=== PATIENT | female | born 1990 | race Caucasian/White ===

== ENCOUNTER 2024-03-03 12:22 | Emergency (ER) | payer OTHER, SELFPAY ==
--- NOTE | ~2024-03-03 | US_ITS ---
EXAMINATION: US pelvic complete DATE: 03/03/2024 14:01 INDICATION: 6 days. Vaginal bleeding. Comparison:No prior studies for comparison. TECHNIQUE: Multiple transabdominal and endovaginal sonographic images of the pelvis performed. FINDINGS: The uterus measures 17.2 x 7.6 x 12.1 cm. The endometrium is thickened and heterogeneous. T he endometrial complex measures 21 mm. The right ovary measures 2.9 x 3.4 x 2.9 cm and the left ovary measures 4.9 x 2.7 x 1.6 cm. There ar e small follicles in each ovary. Normal doppler signal in both ovaries. There is no free fluid in the pelvis. There are no abnormal masses seen on either side. IMPRESSION: 1. Thickened heterogeneous endometrium measuring 2.1 cm, suspicious for retained products of concepti on. Reviewed, dictated and finalized at location A. IMPRESSION: 1. Thickened heterogeneous endometrium measuring 2.1 cm, suspicious for retaine d products of conception.
[2024-03-03 12:30] VITALS: BP 141/97; PULSE 91; RESP 16; TEMP 36.4; O2SAT 100
[2024-03-03 12:48] LABS: Basophils Percent Auto 0.3 % (0.2-1.2); Eosinophils Absolute Auto 0.2 K/mm3 (0-0.3); Eosinophils Percent Auto 1.6 % (0-4.4); Hematocrit 38.7 % (37.0-47.0); Hemoglobin 12.7 g/dL (12.0-15.0); Immature Granulocyte Absolute 0.12 K/mm3 (0.00-0.031); Immature Granulocyte Percent A 1.3 % (0-0.5); Lymphocytes Absolute Auto 2.88 K/mm3 (0.9-3.2); Lymphocytes Percent Auto 31.3 % (18.3-44.2); Mean Corpuscular HGB Conc 32.8 g/dl (32-36); Mean Corpuscular Hemoglobin 29.8 pg (26-34); Mean Corpuscular Volume 90.8 fl (80-100); Mean Platelet Volume 10.4 fl (7.4-10.4); Monocytes Absolute Auto 0.5 K/mm3 (0.1-0.6); Neutrophils Absolute Auto 5.6 K/mm3 (1.3-6.7); Neutrophils Percent Auto 60.5 % (45.5-73.1); Platelet Count Result 335 k/mm3 (150-375); Red Blood Count 4.26 M/mm3 (4.2-5.4); Red Cell Distribution Width 13.7 % (11.5-14.5); White Blood Count 9.2 K/mm3 (4.5-10.0)
[2024-03-03 12:59] LABS: Alanine Aminotransferase 19 U/L (6-35); Alkaline Phosphatase 112 U/L (38-126); Anion Gap 6 mmol/L (4-12); Aspartate Amino Transferase 21 U/L (14-36); Bilirubin,Total 0.3 mg/dL (0.2-1.3); Blood Urea Nitrogen 15 mg/dL (7-17); Calcium 9.1 mg/dL (8.4-10.2); Carbon Dioxide 21 mmol/L (22-30); Chloride 113 mmol/L (98-107); Estimated CRCL calculation 116 ml/min; Estimated Glomerular Filt Rate > 60; Glucose 92 mg/dL (65-110); INR 0.9; Partial Thromboplastin Time 26.5 Seconds (22.3-36.8); Prothrombin Time 12.6 Seconds (11.1-14.7); Sodium 140 mmol/L (137-145)
--- NOTE | 2024-03-03 13:11 | ED.PREGNANCY ---
HPI - General Chief complaint: Vaginal Bleeding Stated complaint: vag bleeding, delivered 6 days ago Time Seen by Provider: 03/03/24 12:41 History of Present Illness HPI Narrative: Patient is a 33-year-old female, approximately 6 days after a spontaneous vaginal delivery at [facility] here with vaginal bleeding. She states that she delivered around 38 weeks, had gone into labor spontaneously however is did have to receive some Pitocin after stalling labor. she ended up delivering vaginally. She had some mild tearing which she received sutures for and has been doing overall well since that delivery. 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 This prompted her to come to the emergency department for evaluation. She notes she continues to feel active vaginal bleeding. She denies any penetration since delivery and does not believe she has any activities that could have torn her sutures. She denies any current abdominal pain or cramping. Denies any shortness of breath, lightheadedness. She believes she is O negative, her previous shoulder were all negative. She does not plan to have any other children. She has received RhoGAM during her prior deliveries. She denies any post complications including excessive bleeding after delivery. Related Data Allergies Allergy/AdvReac Type Severity Reaction Status Date / Time No Known Allergies Allergy Verified 03/03/24 14:05 Review of Systems Review of Systems: All systems reviewed & are unremarkable except as noted in HPI and below Exam Narrative: GENERAL: Well-appearing, well-nourished, and in no acute distress. HEAD: Normocephalic, atraumatic. EYES: PERRLA and EOMI. ENT: Nares clear. Mucous membranes moist. NECK: Supple. CHEST: Clear to auscultation. No respiratory distress. HEART: Regular rate and rhythm. Normal peripheral pulses. ABDOMEN: Soft, nontender, nondistended. 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 she has 4 sutures in the anterior distal vaginal wall which appear to be intact with no active bleeding. She additionally has a couple posterior sutures which also appear to be intact. She has a very tender speculum exam and this limited my ability two-view the cervix however she does have shane dark blood that filled the speculum. It appears to be [id number] in volume at this time. EXTREMITIES: Normal range of motion. No edema. SKIN: Warm, dry, no rash. NEURO: No focal deficits. Alert and oriented x3. PSYCH: Normal mood and affect. Course Course Emergency Course: Chart review performed. Patient here with vaginal bleeding, recent post . Triage vitals show mild HTN, otherwise normal. Patient seen evaluated with nursing staff. She is here with vaginal bleeding. Sutures appear to be intact, suspect origin of blood is likely uterine. Insert for possible retained products of conception versus other causes of post bleeding. basic lab work, type and screen, transvaginal ultrasound been ordered. She did deliver outside of this hospital. Will touch base with our on-call OBGYN and see if they would prefer that I contact her OBGYN through the [facility] system. Lab work and imaging reviewed. Hgb stable at 12.7. CMP grossly normal. US shows thickened heterogenous endometrium measuring 2.1 cm suspicious for retained products of conception. I did speak with Dr. Blackwell, recommends contacting her primary OBGYN if possible but he would be happy to help if needed. Patient reevaluated. She notes bleeding is now more like a heavy period than the massive bleeding that occurred earlier. Spoke with Dr. Cooper, her on-call OBGYN at [facility]. He notes that this could be a clot causing the bleeding not retained products, it is di
[2024-03-03 14:04] VITALS: BP 118/58; PULSE 90; RESP 25; O2SAT 98
== END 2024-03-03 16:43 | disposition home or self-care (01) ==
PROVIDERS: Emergency Provider Student in an Organized Health Care Education/Training Program
DX: O72.1 Other immediate postpartum hemorrhage (principal)
CPT/HCPCS: 36415; 76856; 80053; 85025; 85610; 85730; 86850; 86880; 86900; 86901; 99284